=== PATIENT | female | born 1955 | race Caucasian/White ===

== ENCOUNTER → 2017-03-07 | Outpatient (CLI) | payer BC | END | disposition home or self-care (01) | LOC: KCIC CT 11:43 | DX: M48.03 Spinal stenosis, cervicothoracic region (principal); M25.78 Osteophyte, vertebrae | CPT/HCPCS: 72141 ==

== ENCOUNTER → 2017-05-04 | Outpatient (CLI) | payer BC | END | disposition home or self-care (01) | LOC: KCIC MRI 14:00 | DX: M54.14 Radiculopathy, thoracic region (principal) | CPT/HCPCS: 72146 ==

== ENCOUNTER → 2018-07-04 | Outpatient (CLI) | payer MEDICARE, BC ==
--- NOTE | 2018-07-04 12:22 | KCIC ---
MRI Cervical Spine Without Contrast History: Cervicalgia, left-sided neck pain into the left upper extremity Technique: Multiplanar, multi sequential noncontrast MR imaging was performed of the cervical spine. Comparison: March 07, 2017 Findings: There is mild motion degradation. Cervical cord caliber is within normal limits without focal signal abnormality. Cervical vertebral body stature is maintained. There is negligible anterior spondylolisthesis at C7-T1. There is moderate to severe degenerative disc disease C5-6 and to a somewhat lesser degree at C6-7 as seen previously. There is trace C5-6 and C6-7 endplate edema likely reactive/degenerative in etiology. C2-C3: Spinal canal and neural foramina are adequate. C3-C4: Neural foramina and spinal canal are adequate. There is mild bilateral facet degenerative change. C4-C5: There is facet degenerative change greater on the left. There is again very shallow central protrusion about 1 to 2 mm AP. Spinal canal and neural foramina are adequate. C5-C6: There is again disc osteophyte complex with superimposed bulge/protrusion, indentation upon the ventral thecal sac greater in the lateral recesses, right greater than left as seen previously. There is effacement of ventral subarachnoid space and contact of the ventral cord greater in the right lateral recess. Central canal is again narrowed to about 8 to 9 mm with a greater degree of right greater than left lateral recess stenosis. There is uncovertebral and facet degenerative change bilaterally. There is fairly severe left and mild to moderate right neural foramina compromise. C6-C7: There is minimal disc osteophyte complex and bulge. Central canal is minimally narrowed to 8 to 9 mm as seen previously also with mild narrowing of the lateral recesses bilaterally. There is facet and uncovertebral degenerative change. Right neural foramen is overall adequate, moderate to severe narrowing of the left neural foramen. C7-T1: Spinal canal is adequate. There is left facet hypertrophic change, contributes to severe posterior narrowing of the left neural foramen. Right neural foramen is adequate. Impression: 1. Findings are fairly similar comparing with the February 2017 exam. There is again central canal stenosis about 8 to 9 mm at C5-6 and C6-7 again with right greater than left lateral recess stenosis at C5-6. There is degenerative disc disease and spondylosis at C5-6 and C6-7 as seen previously. 2. Facet and uncovertebral degenerative change contributes to neural foramina compromise as stated, more significant narrowing on the left at C5-6, C6-7, C7-T1 and to lesser degree on the right at C5-C6. Electronically signed by: Tank Glaser MD (07/04/2018 12:19 PM) [email or web address]
== END | disposition home or self-care (01) ==
LOC: KCIC MRI 10:48
PROVIDERS: ATTEND Anesthesiology Pain Medicine
DX: M47.22 Other spondylosis with radiculopathy, cervical region (principal); M43.13 Spondylolisthesis, cervicothoracic region; M50.123 Cervical disc disorder at C6-C7 level with radiculopathy; M25.78 Osteophyte, vertebrae; M48.03 Spinal stenosis, cervicothoracic region
CPT/HCPCS: 72141

== ENCOUNTER → 2019-03-26 | Outpatient (CLI) | payer MEDICARE, BC ==
--- NOTE | 2019-03-26 15:49 | KCIC ---
CERVICAL SPINE WO CONTRAST History: Cervical spondylosis. Radiculopathy. Left-sided. Technique: Multiplanar, multi sequential noncontrast MR imaging was performed of the cervical spine. Comparison: July 04, 2018 Findings: Slight grade 1 anterolisthesis C7 on T1. Normal vertebral body height. No fracture. Multilevel degenerative endplate changes most prominent with edema C6-C7. No pathologic signal abnormality within the cervical spinal cord. C2-C3: No canal or neuroforaminal narrowing. C3-C4: No canal or neuroforaminal narrowing. Mild facet arthropathy. C4-C5: Small posterior disc protrusion. No canal narrowing. No neuroforaminal narrowing. Mild facet arthropathy. C5-C6: Posterior disc osteophyte complex. Mild canal narrowing. Cord flattening. Uncovertebral and facet arthropathy. Severe left and mild to moderate right neuroforaminal narrowing. C6-C7: Posterior disc osteophyte complex. Minimal canal narrowing. Cord flattening. Uncovertebral facet arthropathy greatest on the left. Moderate to severe left and mild right neuroforaminal narrowing. C7-T1: No canal narrowing. Advanced left and moderate right facet arthropathy. Severe left neuroforaminal narrowing. No right neuroforaminal narrowing. When compared the prior examination the degenerative findings are similar. Impression: 1. Moderate multilevel cervical spondylosis with canal narrowing most prominent C5-C6 and C6-C7, unchanged. 2. Multilevel neural foraminal narrowing most severe left C5-C6, C6-C7 and C7-T1, unchanged. Electronically signed by: Faustino Fierro DO (03/26/2019 3:46 PM) [id number]
== END | disposition home or self-care (01) ==
LOC: KCIC MRI 12:17
PROVIDERS: ATTEND Anesthesiology Pain Medicine
DX: M47.22 Other spondylosis with radiculopathy, cervical region (principal); M50.121 Cervical disc disorder at C4-C5 level with radiculopathy; M48.03 Spinal stenosis, cervicothoracic region; M25.78 Osteophyte, vertebrae
CPT/HCPCS: 72141

== ENCOUNTER → 2021-01-22 | Outpatient (CLI) | payer MEDICARE, BC ==
--- NOTE | 2021-01-22 18:06 | KCIC ---
MRI of the cervical spine without contrast 01/22/2021 CLINICAL HISTORY: Chronic neck pain. Bilateral arm tingling. TECHNIQUE: Unenhanced T1-weighted, T2-weighted and inversion recovery sagittal and gradient echo and T2-weighted axial images of the cervical spine were obtained. FINDINGS: Comparison study is dated 03/26/2019 . Mild lateral curvature of the cervical spine is seen convex to the right. There is straightening of t he normal cervical lordosis. Degenerative signal changes are seen involving all the disks of the cerv ical spine. Degenerative signal changes are seen within the marrow surrounding these discs. Loss of h eight of the C5-6 and C6-7 discs is noted. No area of abnormal signal intensity is seen involving the cervical spinal cord. At the C2-3, C3-4 and C4-5 disc spaces there are minimal to mild generalized disc bulges. Degenerativ e changes are seen involving the uncovertebral and facet joints bilaterally. These findings do not re sult in significant central spinal canal or neural foraminal stenosis. At the C5-6 disc space there is a mild to moderate generalized disc bulge. Degenerative changes are s een involving the uncovertebral and facet joints, right greater than left. These findings efface the anterior posterior CSF resulting in mild central spinal canal stenosis with minimal cord impingement. Moderate right greater than left neural foraminal stenosis is seen. At the C6-7 disc space there is a mild generalized disc bulge. Degenerative changes are seen involvin g the uncovertebral and facet joints, left greater than right. These findings efface the anterior CSF resulting in mild central spinal canal stenosis without evidence of cord impingement. Mild to modera te left greater than right neural foraminal stenosis is seen. At the C7-T1 disc space there is a minimal generalized disc bulge. Degenerative changes are seen invo lving the facet joints, left greater than right. These findings do not result in significant central spinal canal stenosis. Moderate left neural foraminal stenosis is seen. Since the previous examination there has been no significant interval change. IMPRESSION: Degenerative changes are seen throughout the cervical spine. These findings results in mi ld central spinal canal stenosis with minimal cord impingement at C5-6 and mild central spinal canal stenosis without evidence of cord impingement at C6-7. Moderate right greater than left neural forami nal stenosis is seen at C5-6. Mild to moderate left greater than right neural foraminal stenosis is s een at C6-7. Moderate left neural foraminal stenosis is seen at C7-T1. Electronically signed by: Aron Huffman MD (01/22/2021 6:04 PM) [place] [id number]
== END ==
LOC: KCIC MRI 12:22
PROVIDERS: ATTEND Family Medicine
DX: M47.813 Spondylosis without myelopathy or radiculopathy, cervicothoracic region (principal); M50.23 Other cervical disc displacement, cervicothoracic region; M48.03 Spinal stenosis, cervicothoracic region
CPT/HCPCS: 72141